=== PATIENT | male | born 1945 | race Caucasian/White ===

== ENCOUNTER → 2018-01-30 | Outpatient (CLI) | payer MEDICARE, BC ==
[~2018-01-30] MED LIST: AMPDEX15CR; ARIP20 PO; BUPR100ER PO; CARBATROL; CITA20 PO; CLON2; CLOP75; DOXE50 PO; ESCI20; HYDACE5 PO; LAMO100; LORA1 PO; OMEP20ER PO; ONDA4 PO; OXYACE5T PO; OXYCODONE; PRAM.5; PRAZ2; PRAZ2 PO; PRAZ5 PO; PROM25 PO; Protonix40 MG PO; RABE20; ROFE25; RXONDA4ODT MM; VENL25 PO; ZIPR60 PO; ZIPR80 PO; Zofran Odt4 MG SL; [UNRECOGNIZED DRUG - OTHER]
[2018-01-30 13:39] LABS: Adenovirus F 40/41 Not Detected (NOT DETECT); Astrovirus Not Detected (NOT DETECT); Campylobacter Sp Not Detected (NOT DETECT); Cryptosporidium Not Detected (NOT DETECT); Cyclospora Cayetanensis Not Detected (NOT DETECT); E. Coli O157 Not Detected (NOT DETECT); Entamoeba Histolytica Not Detected (NOT DETECT); Enteroaggregative E. coli-EAEC Not Detected (NOT DETECT); Enteropathogenic E. coli-EPEC Not Detected (NOT DETECT); Enterotoxigenic E. coli-ETEC Not Detected (NOT DETECT); Giardia Lamblia Not Detected (NOT DETECT); Norovirus GI/GII Not Detected (NOT DETECT); Plesiomonas Shigelloides Not Detected (NOT DETECT); Rotavirus A Not Detected (NOT DETECT); Salmonella Sp Not Detected (NOT DETECT); Sapovirus Not Detected (NOT DETECT); Shiga Toxin-prod E. coli-STEC Not Detected (NOT DETECT); Shigella/Enteroin E. coli-EIEC Not Detected (NOT DETECT); Vibrio Cholerae Not Detected (NOT DETECT); Vibrio Sp Not Detected (NOT DETECT); Yersinia Enterocolitica Not Detected (NOT DETECT)
== END | disposition home or self-care (01) ==
LOC: LAB EV 10:30
PROVIDERS: Physician Assistant
DX: R19.7 Diarrhea, unspecified (principal)
CPT/HCPCS: 87507

== ENCOUNTER 2018-05-17 15:39 | Emergency (ER) | payer MEDICARE, BC ==
[~2018-05-17] VITALS: Ht 182.9 cm; Wt 106.6 kg
[~2018-05-17 15:39] MED LIST changes: -CLOP75
== END 2018-05-17 17:20 | disposition home or self-care (01) ==
LOC: ER 15:39
DX: R13.10 Dysphagia, unspecified (principal); Z88.5 Allergy status to narcotic agent; Z79.899 Other long term (current) drug therapy; Z86.73 Personal history of transient ischemic attack (TIA), and cerebral infarction without residual deficits; Z87.891 Personal history of nicotine dependence
CPT/HCPCS: 99283

== ENCOUNTER 2018-11-12 06:08 | Observation (INO) | payer MEDICARE, BC ==
[~2018-11-12] VITALS: Ht 182.9 cm; Wt 107.5 kg
[~2018-11-12 06:08] MED LIST changes: +CLOP75
[2018-11-12] MEDS ORDERED: CLOP75 PO (06:35)
[2018-11-12 06:39] LABS: BASOPHILS ABSOLUTE AUTO 0.02 K/mm3 (0.00-0.23); BASOPHILS PERCENT AUTO 0 % (0-2); EOSINOPHILS ABSOLUTE AUTO 0.18 K/mm3 (0.00-0.68); EOSINOPHILS PERCENT AUTO 1 % (0-6); Hematocrit 43.2 % (37.0-53.0); Hemoglobin 14.6 g/dL (13.5-17.5); IMMATURE GRAN ABSOLUTE AUTO 0.04 K/mm3 (0.00-0.10); IMMATURE GRAN PERCENT AUTO 0 % (0-1); LYMPHOCYTES ABSOLUTE AUTO 1.92 K/mm3 (0.84-5.20); LYMPHOCYTES PERCENT AUTO 15 % (21-46); MONOCYTES ABSOLUTE AUTO 1.48 K/mm3 (0.16-1.47); MONOCYTES PERCENT AUTO 11 % (4-13); Mean Corpuscular HGB 30.3 pg (26.0-34.0); Mean Corpuscular HGB Conc 33.8 g/dL (31.5-36.5); Mean Corpuscular Volume 90 fL (80-100); Mean Platelet Volume 9.7 fL (9.1-12.4); NEUTROPHILS ABSOLUTE AUTO 9.37 K/mm3 (1.96-9.15); NEUTROPHILS PERCENT AUTO 72 % (41-73); Platelet Count 227 K/mm3 (150-400); RDW Coefficient Variation 12.3 % (11.7-14.2); RDW Standard Deviation 39.9 fL (35.1-46.3); Red Blood Cell Count 4.82 M/mm3 (4.30-5.90); White Blood Cell Count 13.01 K/mm3 (4.00-11.30)
[2018-11-12 06:56] LABS: Alanine Aminotransfer (ALT/SGP 23 U/L (12-78); Albumin, Blood 3.5 g/dL (3.4-5.0); Alk Phos 73 U/L (50-136); Anion Gap 11 mmol/L (6-16); Aspartate Aminotrans (AST/SGOT 25 U/L (12-37); Bilirubin, Total 0.6 mg/dL (0.1-1.0); Blood Urea Nitrogen 21 mg/dL (8-24); Bun/Creatinine Ratio 17.1 (12.0-20.0); CO2, Blood 25 mmol/L (21-32); Calcium, Blood 8.7 mg/dL (8.5-10.1); Chloride, Blood 99 mmol/L (98-108); Creatinine, Blood 1.23 mg/dL (0.60-1.20); Globulin, Blood 3.5 g/dL (2.2-4.0); Glomerular Filtration Rate >60 (60-); Glucose, Blood 127 mg/dL (70-99); Potassium, Blood 3.6 mmol/L (3.5-5.5); Sodium, Blood 135 mmol/L (136-145)
[2018-11-12 10:23] LABS: BASOPHILS ABSOLUTE AUTO 0.02 K/mm3 (0.00-0.23); BASOPHILS PERCENT AUTO 0 % (0-2); EOSINOPHILS ABSOLUTE AUTO 0.09 K/mm3 (0.00-0.68); EOSINOPHILS PERCENT AUTO 1 % (0-6); Hematocrit 40.9 % (37.0-53.0); Hemoglobin 13.7 g/dL (13.5-17.5); IMMATURE GRAN ABSOLUTE AUTO 0.05 K/mm3 (0.00-0.10); IMMATURE GRAN PERCENT AUTO 0 % (0-1); LYMPHOCYTES PERCENT AUTO 16 % (21-46); MONOCYTES ABSOLUTE AUTO 1.12 K/mm3 (0.16-1.47); MONOCYTES PERCENT AUTO 9 % (4-13); Mean Corpuscular HGB 30.7 pg (26.0-34.0); Mean Corpuscular HGB Conc 33.5 g/dL (31.5-36.5); Mean Corpuscular Volume 92 fL (80-100); Mean Platelet Volume 9.8 fL (9.1-12.4); NEUTROPHILS ABSOLUTE AUTO 8.92 K/mm3 (1.96-9.15); NEUTROPHILS PERCENT AUTO 74 % (41-73); Platelet Count 204 K/mm3 (150-400); RDW Coefficient Variation 12.4 % (11.7-14.2); RDW Standard Deviation 41.6 fL (35.1-46.3); Red Blood Cell Count 4.46 M/mm3 (4.30-5.90)
[2018-11-12] MEDS ORDERED: TRAZADONE PO (12:52)
[2018-11-13 04:36] LABS: BASOPHILS ABSOLUTE AUTO 0.01 K/mm3 (0.00-0.23); BASOPHILS PERCENT AUTO 0 % (0-2); EOSINOPHILS ABSOLUTE AUTO 0.24 K/mm3 (0.00-0.68); EOSINOPHILS PERCENT AUTO 2 % (0-6); Hematocrit 38.6 % (37.0-53.0); Hemoglobin 13.1 g/dL (13.5-17.5); IMMATURE GRAN ABSOLUTE AUTO 0.05 K/mm3 (0.00-0.10); IMMATURE GRAN PERCENT AUTO 0 % (0-1); LYMPHOCYTES ABSOLUTE AUTO 2.64 K/mm3 (0.84-5.20); LYMPHOCYTES PERCENT AUTO 21 % (21-46); MONOCYTES ABSOLUTE AUTO 1.53 K/mm3 (0.16-1.47); MONOCYTES PERCENT AUTO 12 % (4-13); Mean Corpuscular HGB 30.8 pg (26.0-34.0); Mean Corpuscular HGB Conc 33.9 g/dL (31.5-36.5); Mean Corpuscular Volume 91 fL (80-100); Mean Platelet Volume 10.1 fL (9.1-12.4); NEUTROPHILS ABSOLUTE AUTO 8.27 K/mm3 (1.96-9.15); NEUTROPHILS PERCENT AUTO 65 % (41-73); Platelet Count 195 K/mm3 (150-400); RDW Coefficient Variation 12.7 % (11.7-14.2); RDW Standard Deviation 41.3 fL (35.1-46.3); Red Blood Cell Count 4.25 M/mm3 (4.30-5.90); White Blood Cell Count 12.74 K/mm3 (4.00-11.30)
[2018-11-13 06:02] LABS: Alanine Aminotransfer (ALT/SGP 19 U/L (12-78); Albumin, Blood 3.1 g/dL (3.4-5.0); Alk Phos 60 U/L (50-136); Anion Gap 7 mmol/L (6-16); Aspartate Aminotrans (AST/SGOT 20 U/L (12-37); Bilirubin, Total 0.9 mg/dL (0.1-1.0); Blood Urea Nitrogen 15 mg/dL (8-24); Bun/Creatinine Ratio 13.3 (12.0-20.0); CO2, Blood 27 mmol/L (21-32); Calcium, Blood 8.2 mg/dL (8.5-10.1); Chloride, Blood 103 mmol/L (98-108); Creatinine, Blood 1.13 mg/dL (0.60-1.20); Globulin, Blood 3.2 g/dL (2.2-4.0); Glomerular Filtration Rate >60 (60-); Glucose, Blood 98 mg/dL (70-99); Potassium, Blood 3.7 mmol/L (3.5-5.5); Sodium, Blood 137 mmol/L (136-145); Total Protein, Blood 6.3 g/dL (6.4-8.2)
[2018-11-13] MEDS ORDERED: DULO60 PO (12:56)
== END 2018-11-13 14:05 | disposition home or self-care (01) ==
LOC: ER 06:08 → SURS 06:09
PROVIDERS: Internal Medicine; Internal Medicine Endocrinology, Diabetes & Metabolism
DX: E86.9 Volume depletion, unspecified (principal); I95.1 Orthostatic hypotension; E86.0 Dehydration; K92.0 Hematemesis; K52.9 Noninfective gastroenteritis and colitis, unspecified; G47.33 Obstructive sleep apnea (adult) (pediatric); J44.9 Chronic obstructive pulmonary disease, unspecified; M19.90 Unspecified osteoarthritis, unspecified site; N40.0 Benign prostatic hyperplasia without lower urinary tract symptoms; K21.9 Gastro-esophageal reflux disease without esophagitis; K22.2 Esophageal obstruction; F43.10 Post-traumatic stress disorder, unspecified; F41.8 Other specified anxiety disorders; M54.5 Low back pain; G89.29 Other chronic pain; Z86.73 Personal history of transient ischemic attack (TIA), and cerebral infarction without residual deficits; Z87.891 Personal history of nicotine dependence; Z88.5 Allergy status to narcotic agent; Z79.02 Long term (current) use of antithrombotics/antiplatelets; Z79.899 Other long term (current) drug therapy
CPT/HCPCS: 36415; 80053; 82272; 85018; 85025; 93005; 93010; 96361; 96374; 96375; 96376; 99285-25; C9113; G0378; J2405; J3480; J7120

== ENCOUNTER 2019-01-19 06:36 | Day surgery (SDC) | payer MEDICARE, BC ==
[~2019-01-19] VITALS: Ht 182.9 cm; Wt 108.0 kg
[~2019-01-19 06:36] MED LIST changes: +CLOP75 PO; +DULO60 PO; +TRAZADONE PO
[2019-01-19] MEDS ORDERED: TRAZ50 (07:31)
== END 2019-01-19 08:40 | disposition home or self-care (01) ==
LOC: ORSCSDS 06:36
PROVIDERS: Internal Medicine Gastroenterology
PROC: 0DB68ZX Excision of Stomach, Via Natural or Artificial Opening Endoscopic, Diagnostic (ICD-10-PCS; principal; 2019-01-19 08:00)
DX: K92.0 Hematemesis (principal); K44.9 Diaphragmatic hernia without obstruction or gangrene; Z86.73 Personal history of transient ischemic attack (TIA), and cerebral infarction without residual deficits; Z87.891 Personal history of nicotine dependence; E66.9 Obesity, unspecified; Z68.34 Body mass index [BMI] 34.0-34.9, adult; Z79.899 Other long term (current) drug therapy
CPT/HCPCS: 88305; 88342; J0330; J1980; J2405; J7120

== ENCOUNTER 2019-08-24 07:58 | Day surgery (SDC) | payer MEDICARE, BC ==
[~2019-08-24] VITALS: Ht 182.9 cm; Wt 106.4 kg
[~2019-08-24 07:58] MED LIST changes: +TRAZ50 PO
[2019-08-24] MEDS ORDERED: CLOP75 (08:48)
[2019-08-24] MEDS ORDERED: PRAV20 (08:49)
--- NOTE | 2019-08-24 10:19 | NUR ---
08/24/19 1019 Glory Mcarthur WHEN ASKED PT. IF HE HAD ANY PAIN, PT. VERBALIZES HIS LOWER BACK. PT. STATED "TIRED FROM LAYING IN THE BED." [facility] OFFERED PT. TO SIT UP IN BED OR A PILLOW OR FOOT OF BED RAISED. PT. REFUSED. PT. VERBALIZED HE WAS OK. PT. WITH CALL LIGHT WITHIN REACH. ALSO APPOLOGIZED TO PT. FOR DR. GREEN RUNNING BEHIND.
== END 2019-08-24 11:53 | disposition home or self-care (01) ==
LOC: ORSCSDS 07:58
PROVIDERS: Internal Medicine Gastroenterology
PROC: 0DBN8ZX Excision of Sigmoid Colon, Via Natural or Artificial Opening Endoscopic, Diagnostic (ICD-10-PCS; principal; 2019-08-24 09:45)
PROC: 0DBL8ZX Excision of Transverse Colon, Via Natural or Artificial Opening Endoscopic, Diagnostic (ICD-10-PCS; principal; 2019-08-24 09:45)
PROC: 0DBH8ZX Excision of Cecum, Via Natural or Artificial Opening Endoscopic, Diagnostic (ICD-10-PCS; principal; 2019-08-24 09:45)
DX: Z12.11 Encounter for screening for malignant neoplasm of colon (principal); D12.0 Benign neoplasm of cecum; D12.3 Benign neoplasm of transverse colon; D12.5 Benign neoplasm of sigmoid colon; K57.30 Diverticulosis of large intestine without perforation or abscess without bleeding; K64.8 Other hemorrhoids; Z86.010 Personal history of colon polyps; G47.33 Obstructive sleep apnea (adult) (pediatric); Z86.73 Personal history of transient ischemic attack (TIA), and cerebral infarction without residual deficits; Z79.899 Other long term (current) drug therapy; Z87.891 Personal history of nicotine dependence
CPT/HCPCS: 88305; J2704; J7120

== ENCOUNTER 2024-09-09 20:09 | Inpatient (IN) | payer MEDICARE, BC ==
[~2024-09-09] VITALS: Ht 182.9 cm; Wt 87.6 kg
[~2024-09-09 20:09] MED LIST changes: +LOPERAMIDE2 M2; +PRAV20
[2024-09-09] MEDS ORDERED: LORazepam 2 MG/ML 1ML Injection ONE (20:12)
[2024-09-09] MEDS ORDERED: LORazepam 2 MG/ML 1ML Injection IV ONE (20:15)
[2024-09-09 20:34] LABS: Calcium, Ionized (POC) 1.23 mmol/L (1.10-1.46); Chloride (POC) 100 mmol/L (98-108); Glucose (ISTAT POC) 153 mg/dL (70-99); Hemoglobin (POC) 15.3 g/dL (13.5-17.5); Potassium (POC) 3.3 mmol/L (3.5-5.5); Sodium (POC) 136 mmol/L (135-148); Total CO2 (POC) 19 mmol/L (21-32)
[2024-09-09] MEDS ORDERED: levETIRAcetam 1,500 MG in NS 100 ML IV ONE ×2 (20:40→21:30)
[2024-09-09] MEDS ORDERED: NS 1,000 ML IV SCH (20:55)
[2024-09-09 20:57] LABS: Albumin, Blood 3.7 g/dL (3.4-5.0); Bilirubin, Total 0.4 mg/dL (0.1-1.0); Bun/Creatinine Ratio 12.8 (12.0-20.0); Calcium, Blood 8.5 mg/dL (8.5-10.1); Creatinine, Blood 0.94 mg/dL (0.60-1.20); Globulin, Blood 3.6 g/dL (2.2-4.0); Potassium, Blood 3.6 mmol/L (3.5-5.5); Prolactin 6.5 ng/mL (2.5-17.4); Total Protein, Blood 7.3 g/dL (6.4-8.2)
[2024-09-09 21:00] LABS: Hematocrit 41.1 % (37.0-53.0); Hemoglobin 13.5 g/dL (13.5-17.5); Mean Corpuscular HGB 29.9 pg (26.0-34.0); Mean Corpuscular HGB Conc 32.8 g/dL (31.5-36.5); Mean Corpuscular Volume 91 fL (80-100); Mean Platelet Volume 10.3 fL (9.1-12.4); Platelet Count 255 K/mm3 (150-400); RDW Coefficient Variation 12.9 % (11.7-14.2); Red Blood Cell Count 4.52 M/mm3 (4.30-5.90); White Blood Cell Count 19.93 K/mm3 (4.00-11.30)
[2024-09-09 21:25] LABS: BASOPHILS PERCENT MAN 0 % (0-2); EOSINOPHILS PERCENT MAN 0 % (0-6); LYMPHOCYTES % ATYPICAL MANUAL 2 % (0-0); LYMPHOCYTES ABSOLUTE MAN 7.57 K/mm3 (0.84-5.20); LYMPHOCYTES PERCENT MAN 36 % (21-46); MONOCYTES ABSOLUTE MAN 0.79 K/mm3 (0.16-1.47); MONOCYTES PERCENT MAN 4 % (4-13); NEUTROPHILS ABSOLUTE MAN 11.55 K/mm3 (1.96-9.15); SEG NEUTROPHILS PERCENT MAN 58 % (41-73); TOTAL CELLS COUNTED 100
[2024-09-09] MEDS ORDERED: Metoprolol Tartrate 1 MG/ML 5 ML VIAL IV PRN (21:35)
[2024-09-09] MEDS ORDERED: FLU VACC TS2024-25(6MOS UP)/PF 45 MCG/0.5 ML SYRINGE IM ONE (22:00)
[2024-09-09] MEDS ORDERED: LORazepam 2 MG/ML 1ML Injection IV PRN (22:05)
[2024-09-09] MEDS ORDERED: Ondansetron HCl 2 MG / ML 2ML Vial IV PRN (22:05)
[2024-09-09] MEDS ORDERED: Lactated Ringer's 1,000 ML IV SCH (23:00)
[2024-09-09 23:30] VITALS: BP 147/81
[2024-09-09 23:45] VITALS: BP 133/88
[2024-09-09] MEDS ORDERED: Heparin Sodium,Porcine/0.5 NS 500 ML IV SCH (23:45)
[2024-09-10] VITALS (34 sets, daily range): BP systolic 52–156; BP diastolic 26–93
--- NOTE | 2024-09-10 00:41 | NUR ---
ARRIVAL TO ICU PT LETHARGIC AND DOES NOT OPEN EYES OR FOLLOW COMMANDS. MOANS WITH CARE. EXTREMITIES STIFF WHEN TRYING TO REPOSITION THEM. ON 5L VIA NC WITH SPO2 GREATER THEN 92%. VSS. ST 100-110'S. LR AT 125ML/HR AND HEPARIN STARTED PER EMAR. PT PLACED IN BRIEF D/T AMS. SON AT BEDSIDE AND AGREES TO BRING IN PT MED LIST IN THE AM. CALL TO [facility]. SON AT BEDSIDE AND STATES HE IS MAIN CONTACT. SEIZURE PADS IN PLACE. CALL LIGHT IN REACH.
[2024-09-10 00:46] LABS: Anti-Xa UFH, PHA Monitoring <0.10 IU/mL; International Normalized Ratio 1.07; Prothrombin Time Results 11.4 Sec (9.7-11.5)
[2024-09-10] MEDS ORDERED: Aspir 8181 MG PO (03:06)
[2024-09-10] MEDS ORDERED: THERA-D2000 UNIT PO (03:06)
[2024-09-10] MEDS ORDERED: ABILIFY MYCITE10 M2 PO (03:07)
[2024-09-10] MEDS ORDERED: ZOCOR20 MG PO (03:07)
[2024-09-10 03:38] LABS: BASOPHILS ABSOLUTE AUTO 0.04 K/mm3 (0.00-0.23); BASOPHILS PERCENT AUTO 0 % (0-2); EOSINOPHILS ABSOLUTE AUTO 0.01 K/mm3 (0.00-0.68); EOSINOPHILS PERCENT AUTO 0 % (0-6); Hematocrit 36.4 % (37.0-53.0); Hemoglobin 12.3 g/dL (13.5-17.5); IMMATURE GRAN ABSOLUTE AUTO 0.23 K/mm3 (0.00-0.10); IMMATURE GRAN PERCENT AUTO 1 % (0-1); LYMPHOCYTES ABSOLUTE AUTO 1.58 K/mm3 (0.84-5.20); LYMPHOCYTES PERCENT AUTO 7 % (21-46); MONOCYTES ABSOLUTE AUTO 1.21 K/mm3 (0.16-1.47); MONOCYTES PERCENT AUTO 6 % (4-13); Mean Corpuscular HGB 30.1 pg (26.0-34.0); Mean Corpuscular HGB Conc 33.8 g/dL (31.5-36.5); Mean Corpuscular Volume 89 fL (80-100); Mean Platelet Volume 9.6 fL (9.1-12.4); NEUTROPHILS ABSOLUTE AUTO 18.52 K/mm3 (1.96-9.15); NEUTROPHILS PERCENT AUTO 86 % (41-73); Platelet Count 226 K/mm3 (150-400); RDW Coefficient Variation 12.9 % (11.7-14.2); RDW Standard Deviation 42.4 fL (35.1-46.3); Red Blood Cell Count 4.09 M/mm3 (4.30-5.90); White Blood Cell Count 21.59 K/mm3 (4.00-11.30)
[2024-09-10 04:02] LABS: Albumin, Blood 3.2 g/dL (3.4-5.0); Bilirubin, Total 0.3 mg/dL (0.1-1.0); Bun/Creatinine Ratio 10.9 (12.0-20.0); Calcium, Blood 8.2 mg/dL (8.5-10.1); Creatinine, Blood 0.92 mg/dL (0.60-1.20); Globulin, Blood 3.1 g/dL (2.2-4.0); Magnesium, Blood 1.4 mg/dL (1.6-2.4); Total Protein, Blood 6.3 g/dL (6.4-8.2)
[2024-09-10 04:48] LABS: Source, Urine Foley catheter
[2024-09-10 05:09] LABS: Appearance, Urine Clear (Clear); Bilirubin, Urine Neg (Neg); Blood, Urine 3+ (Neg); Color, Urine Yellow (P-Yellow); Glucose Qualitative, Urine Neg (Neg); Ketones, Urine Neg (Neg); Leukocyte Esterase, Urine Neg (Neg); Nitrite, Urine Neg (Neg); Protein, Urine 3+ (Neg); Specific Gravity, Urine 1.015 (1.003-1.022); Urobilinogen, Urine NORM (Normal)
--- NOTE | 2024-09-10 05:16 | NUR ---
SHIFT SUMMARY NO ACUTE EVENTS T/O NIGHT. [facility]CEIV[facility] LIST FROM [facility] AND UPDATED IN CHART. VSS. ON 5L VIA NC WITH SPO2 GREATER THEN 92%. SR/ST RATE 90-100'S. PT REMAINS LETHARGIC, DID HAVE ONE EPISODE OF SLIGHTLY OPENING EYES, TEARING OFF GOWN/CORDS BEFORE FALLING ASLEEP AND THEN WAKING UP AGAIN. DID NOT ANSWER QUESTIONS OR FOLLOW DIRECTIONS. BLADDER SCAN >999. 1200ML OUT FROM CATH. CALL TO HOSP AND ORDER TO LEAVE IN REYEZ. HEPARIN GTT INFUSING. SEE FLOWSHEET FOR RATE AND TITRATIONS. LR AT 125ML/HR. WILL REPORT OFF TO ONCOMING RN.
[2024-09-10 05:42] LABS: Bacteria Few /hpf; Red Blood Cells, Urine 0-2 /hpf (0-2); Squamous Epithelial Cells Few /hpf (Few); White Blood Cells, Urine 0-2 /hpf (0-5)
--- NOTE | 2024-09-10 06:19 | NUR ---
UPDATE PT TRYING TO GET OOB, THROWING LEGS OVER SIDERAIL AND PULLING OFF GOWN/CORDS. ABLE TO STATE "I HAVE TO GO TO THE BATHROOM". UNABLE TO REDIRECT OR EDUCATE PT ON REYEZ CATH. ORDER FOR MARYCHUY APONTE D/T PT SAFETY.
[2024-09-10] MEDS ORDERED: Lactated Ringer's 1,000 ML IV SCH (07:05)
[2024-09-10] MEDS ORDERED: Lactobacil 2-S.Thermo-Bifido 1 1 Cap PO SCH (09:00)
[2024-09-10] MEDS ORDERED: Atorvastatin 40 MG Tab PO SCH (09:00)
[2024-09-10] MEDS ORDERED: levETIRAcetam 1,000 MG in NS 100 ML IV SCH (09:00)
[2024-09-10] MEDS ORDERED: Enoxaparin 40 MG/0.4 ML SYR SC SCH (09:00)
[2024-09-10] MEDS ORDERED: Aspirin 81 MG Chew PO SCH (09:00)
[2024-09-10] MEDS ORDERED: Doxycycline Hyclate 100 MG in Dextrose 5% 250 ML IV SCH (12:00)
[2024-09-10] MEDS ORDERED: CefTRIAXone Sodium 1,000 MG in NS 100 ML IV SCH (12:00)
[2024-09-10] MEDS ORDERED: Mag Sulfate 1 GM/D5% 100ML 100 ML IV STA (13:37)
--- NOTE | 2024-09-10 14:11 | NUR ---
Pt. is resting but responds when I enter his room. Pt. is pleasant, but somewhat somnolent. Attempted a life review. Pt. agreed to have me pray for him. Prayed with Pt. Pt. became totally somnolent during prayer.
--- NOTE | 2024-09-10 17:20 | NUR ---
SHIFT SUMMARY PT ADMITED TO ICU FOR SEIZURES. MRI HEAD DONE. STROKE RULED OUT. STATUS CHANGE TO MEDICAL. ALTERED MENTATION, BUT IMPROVED THROUGHOUT THE DAY.
[2024-09-11] VITALS (11 sets, daily range): BP systolic 125–164; BP diastolic 74–102
[2024-09-11 03:18] LABS: BASOPHILS ABSOLUTE AUTO 0.02 K/mm3 (0.00-0.23); BASOPHILS PERCENT AUTO 0 % (0-2); EOSINOPHILS ABSOLUTE AUTO 0.03 K/mm3 (0.00-0.68); EOSINOPHILS PERCENT AUTO 0 % (0-6); Hematocrit 33.8 % (37.0-53.0); Hemoglobin 11.5 g/dL (13.5-17.5); IMMATURE GRAN ABSOLUTE AUTO 0.11 K/mm3 (0.00-0.10); IMMATURE GRAN PERCENT AUTO 1 % (0-1); LYMPHOCYTES ABSOLUTE AUTO 2.54 K/mm3 (0.84-5.20); LYMPHOCYTES PERCENT AUTO 17 % (21-46); MONOCYTES ABSOLUTE AUTO 1.47 K/mm3 (0.16-1.47); MONOCYTES PERCENT AUTO 10 % (4-13); Mean Corpuscular HGB 29.9 pg (26.0-34.0); Mean Corpuscular Volume 88 fL (80-100); Mean Platelet Volume 9.9 fL (9.1-12.4); NEUTROPHILS ABSOLUTE AUTO 10.68 K/mm3 (1.96-9.15); NEUTROPHILS PERCENT AUTO 72 % (41-73); Platelet Count 183 K/mm3 (150-400); RDW Standard Deviation 41.7 fL (35.1-46.3); Red Blood Cell Count 3.84 M/mm3 (4.30-5.90); White Blood Cell Count 14.85 K/mm3 (4.00-11.30)
[2024-09-11 03:35] LABS: Albumin, Blood 3.1 g/dL (3.4-5.0); Albumin/Globulin Ratio 1.1 (0.8-1.8); Bilirubin, Total 0.5 mg/dL (0.1-1.0); Bun/Creatinine Ratio 11.6 (12.0-20.0); Calcium, Blood 8.7 mg/dL (8.5-10.1); Creatinine, Blood 0.86 mg/dL (0.60-1.20); Globulin, Blood 2.9 g/dL (2.2-4.0); Potassium, Blood 3.4 mmol/L (3.5-5.5)
--- NOTE | 2024-09-11 06:11 | NUR ---
SHIFT CHERELLE PT A/O X 2. ABLE TO STATE LOCATION AND MONTH. FOLLOWS SIMPLE DIRECTIONS BUT FORGETFUL AND CONTINUES TO PULL AT LINES CORDS. VEST AND MITT RESTRAINTS IN PLACE. APPROX 0100 PT DID PULL ON CATHETER WITH MITTS ON. BLOOD NOTED TO TIP OF PENIS AND URINE COLOR RED. HOSP NOTIFIED AND MORNING LABS ORDERED. APPROX 0530 THIS RN NOTED THAT URINE WAS A DARKER RED COLOR WITH CLOTS IN TUBE. CALL TO HOSP AND ORDER TO STOP HEPARIN, REPEAT H/H IN 4 HOURS AND FLUSH REYEZ PRN. NO CLOTS NOTED WITH FLUSHING, REMAINS DARK RED AFTER FLUSHING. VSS, SR HR 70-90'S. ON 1.5L VIA NC WITH SPO2 GREATER THEN 92%. WILL REPORT OFF TO ONCOMING RN.
[2024-09-11] MEDS ORDERED: Potassium Chl 20MEQ/Water100ML 100 ML IV SCH (08:10)
[2024-09-11] MEDS ORDERED: Lidocaine 2% Jelly Uro-Jet UR ONE (08:50)
--- NOTE | 2024-09-11 09:45 | NUR ---
SHIFT ASSESSMENT ASSUMED CARE OF PT @ 0700, DURING BEDSIDE REPORT FROM NOC NURSE WE NOTICED PTS REYEZ CATHETER WAS REMOVED, CATHETER COLLECTION CHAMBER WITH BLOODY URINE. BLOOD SLOWLY OOZING FROM PENIS. PT IN BL MITTS AND MARYCHUY AT THAT TIME. PT ALERT TO PERSON, PLACE, AND EVENT, FOLLOWING COMMANDS, VERBALIZING NEEDS. PT ASKED FOR A URINAL, ABLE TO URINATE A SMALL AMNT OF BLOOD c CLOTS. THIS RN CONTACTED HOSPITALIST, REYEZ CATHETER REESTABLISHED FOR IRRIGATION, CONTINUES TO DRAIN BLOODY URINE. PT HAVING LOOSE BROWN STOOLS. PASSED SWALLOW EVAL, WILL ADVANCE DIET ORDERED. MITTS AND MARYCHUY REMOVED. PT RESTING COMFORTABLY.
[2024-09-11 12:03] LABS: Hematocrit 34.2 % (37.0-53.0); Hemoglobin 11.6 g/dL (13.5-17.5)
[2024-09-11] MEDS ORDERED: Acetaminophen 325 MG TABLET PO PRN (16:15)
--- NOTE | 2024-09-11 18:16 | NUR ---
SHIFT SUMMARY PT REMAINS ALERT TO PERSON AND FAMILY, A LITTLE MORE CONFUSED THIS AFTERNOON REGARDING LOCATION. CONTINUES TO FOLLOW COMMANDS, REDIRECTABLE BUT ACCIDENTALLY PULLS ON LINES AND CORDS. ONCE AGAIN HAD A HOLD OF HIS REYEZ CATHETER, DID NOT DISLODGE HE WAW REDIRECTED, SITTER AT BEDSIDE NOW. REYEZ CATHETER DRAINING RED URINE, T-MAX OF 100.5, MEDICATED WITH PRN ACETAMINOPHEN. TWO LARGE LOOSE BM'S TODAY. TOLERATING SMALL AMNTS OF FOOD. \ PTS SON UPDATED AT BEDSIDE THIS EVENING.
--- NOTE | 2024-09-11 20:11 | NUR ---
ASSUMED CARE PT A/O X 3. FORGETFUL AT TIMES. 1:1 SITTER AT BEDSIDE D/T PT ATTEMPTING TO PULL LINES/TUBES. EASILY REDIRECTABLE. VSS, HTN NOTED. ON RA WITH SPO2 GREATER THEN 92%. REYEZ PATENT AND DRAINING TO GRAVITY. URINE PINK WITH SMALL CLOTS NOTED. CALL LIGHT IN REACH.
[2024-09-11] MEDS ORDERED: Metoprolol Tartrate 25 MG Tab PO SCH (21:00)
[2024-09-12] VITALS (10 sets, daily range): BP systolic 129–170; BP diastolic 64–90
--- NOTE | 2024-09-12 05:42 | NUR ---
SHIFT SUMMARY NO ACUTE EVENTS T/O NIGHT. PT A/O X 3. FORGETFUL AT TIMES. SITTER AT BEDSIDE D/T PT FALL RISK AND RISK OF PULLING ON LINES. VSS, HTN AT TIMES. SR 60-90'S. LR AT 125ML/HR. REYEZ PATENT AND DRAINING TO GRAVITY. CATH FLUSHED ONCE D/T INCREASING RED COLOR. COLOR NOW PINK/YELLOW. PT C/O BACK PAIN THIS AM, MEDICATED PER EMAR AND AGREEABLE TO GETTING UP TO CHAIR. PT TWO PERSON ASSIST BUT DID REALLY WELL. STATES "MY BACK IS FEELING ALOT BETTER". WILL REPORT OFF TO ONCOMING RN.
[2024-09-12] MEDS ORDERED: Mag Sulfate 1 GM/D5% 100ML 100 ML IV STA (07:36)
[2024-09-12] MEDS ORDERED: ARIPiprazole 10 MG Tab PO SCH (09:00)
[2024-09-12] MEDS ORDERED: Metoprolol Tartrate 25 MG Tab PO SCH (09:00)
[2024-09-12] MEDS ORDERED: DULoxetine HCL 60 MG Capsule DR PO SCH (09:00)
[2024-09-12] MEDS ORDERED: Omeprazole 20 MG CapCR PO SCH (09:00)
[2024-09-12] MEDS ORDERED: Losartan Potassium 25 MG Tab PO SCH (09:00)
[2024-09-12] MEDS ORDERED: Cholecalciferol 1000 Unit Tablet (=25MCG) PO SCH (09:00)
[2024-09-12] MEDS ORDERED: LevETIRAcetam 500 MG Tab PO SCH (09:00)
--- NOTE | 2024-09-12 17:43 | NUR ---
SHIFT SUMMARY PT A&OX3, FOLLOWING COMMANDS, TRINITY. PT MORE COHERENT THAN YESTERDAY, DOING MUCH BETTER FEEDING SELF. TOLERATING PO INTAKE, APPETITE IMPROVING. WORKED WITH PHYSICAL THERAPY TODAY, AMBULATES TO RECLINER WITH WALKER AND GAIT BELT. A-FIB ON THE VITREO RETINAL SURGEON IN THE 80'S, BP MILDLY HYPERTENSIVE, SBP 150'S. ONE SMALL LOOSE BM TODAY. TEMP PROBE REYEZ DRAINING PINKISH URINE, HAVE NOT NEEDED TO FLUSH CATHETER TODAY. AAMIR (SON) AT BEDSIDE MOST OF THE DAY. THIS RN AND AAMIR DISCUSSED PLAN OF CARE. PT PROVIDES CARE TO SPOUSE. UNSURE OF PTS ABILITY TO PROVIDE APPROPRIATE CARE FOR SELF AND SPOUSE, WILL NEED TO MEET WITH CASE MANAGEMENT TOMORROW.
[2024-09-12] MEDS ORDERED: Prazosin HCL 5 MG Cap PO SCH (21:00)
[2024-09-12] MEDS ORDERED: TraZODone HCl 50 MG Tab PO SCH (21:00)
[2024-09-13 04:00] VITALS: BP 137/81
[2024-09-13 04:29] LABS: Bun/Creatinine Ratio 14.5 (12.0-20.0); Calcium, Blood 8.9 mg/dL (8.5-10.1); Creatinine, Blood 0.83 mg/dL (0.60-1.20); Magnesium, Blood 1.6 mg/dL (1.6-2.4); Potassium, Blood 2.8 mmol/L (3.5-5.5)
[2024-09-13] MEDS ORDERED: Potassium Chloride 20 MEQ TabCR PO ONE ×2 (04:40→13:30)
--- NOTE | 2024-09-13 05:01 | NUR ---
SHIFT SUMMARY NO ACUTE EVENTS T/O NIGHT. PT A/O X 3. FOLLOWS COMMANDS AND MOVES ALL EXTREMITIES. VSS, ON RA WITH SPO2 GREATER THEN 92%. SR W OCCASIONAL BIGEMINY PVC'S. HOSP NOTIFIED OF KCL OF 2.8. ORDERS RECEIVED. REYEZ PATENT AND DRAINING TO GRAVITY. URINE PINK IN COLOR. WILL REPORT OFF TO ONCOMING RN.
[2024-09-13] MEDS ORDERED: Mag Sulfate 1 GM/D5% 100ML 100 ML IV STA (07:32)
[2024-09-13] MEDS ORDERED: Amoxicillin/Clavulanate K 875 MG Tab PO SCH (09:00)
--- NOTE | 2024-09-13 10:53 | NUR ---
UPDATE PT A&OX4, FOLLOWING COMMANDS, USING CALL LIGHT APPROPRIATELY. AMBULATING WITH GAIT BELT AND WALKER. TOLERATING PO INTAKE WELL. CONTINUES TO HAVE LOOSE BM'S. AFTER ASSISTING TO BEDSIDE COMMODE THIS MORNING, PT WENT TO STAND WITHOUT CALLING FOR ASSISTANCE AND ACCIDENTALLY PULLED ON HIS REYEZ CATHETER, NOW BLEEDING OUT OF PENIS AGAIN, REYEZ WITH RED TINGED URINE. PADS PLACED, WILL MEDICATE FOR MILD DISCOMFORT WITH PRN TYLENOL.
[2024-09-13] MEDS ORDERED: Nystatin 100,000 Unit/ML Susp 5 ML UDC SS SCH (13:00)
[2024-09-13] MEDS ORDERED: Omeprazole 20 MG CapCR PO SCH (16:30)
--- NOTE | 2024-09-13 18:17 | NUR ---
SHIFT SUMMARY PT REMAINS A&OX4, FOLLOWING COMMANDS, AMBULATING WITH WALKER. MUCH MORE COHERENT TODAY, BACK TO BASELINE PER SON AAMIR AT BEDSIDE. TOLERATING MEALS WELL. CONTINUES TO HAVE LOOSE STOOLS BUT CONTINENT. REYEZ CATHETER DRAINING PINK URINE. NO OTHER ACUTE CHANGES. EEG COMPLETED THIS AFTERNOON.
[2024-09-13 19:58] VITALS: BP 149/95
[2024-09-13 19:59] VITALS: BP 149/95
--- NOTE | 2024-09-13 20:40 | NUR ---
ASSUMPTION OF CARE ASSUMED CARE OF PATIENT AT 1900, BEDSIDE SHIFT REPORT RECEIVED FROM DOUG RN. PT RESTING IN BED, ALERT AND ORIENTED X4. PT ANSWERS QUESTIONS APPROPRIATELY, FOLLOWS DIRECTION WHEN PROMPTED AND IS ABLE TO MAKE HIS NEEDS KNOWN. PT APPEARS TO BE FORGETFUL AT TIMES. PT AMBULATES TO BEDSIDE COMMODE TO VOID. HR 70-80'S SINUS, MAP >65. PT ON RA, OXYGEN SATURATION >95% ON SPOT CHECK. ABDOMEN SOFT, BOWEL TONES ACTIVE THROGUHOUT, PT HAD ONE INCONTINENT BOWEL MOVEMENT IN BED, UP TO BEDSIDE COMMODE TO FINISH BM. REYEZ IN PLACE PATENT DRAINING REDISH/PINK URINE WITH SMALL CLOTS. POWERGLIDE IN PLACE TO APRIL SL. BED IN LOWEST POSITION, CALL LIGHT WITHIN REACH, CARE CONTINUES.
[2024-09-14 03:36] VITALS: BP 156/105
[2024-09-14 03:40] VITALS: BP 156/105
[2024-09-14 03:59] LABS: Calcium, Blood 9.2 mg/dL (8.5-10.1); Magnesium, Blood 1.8 mg/dL (1.6-2.4); Potassium, Blood 3.9 mmol/L (3.5-5.5)
--- NOTE | 2024-09-14 05:12 | NUR ---
SHIFT SUMMARY NO ACUTE CHANGES THIS SHIFT. PT RESTING IN BED, SLEEPING BUT AROUSABLE, PT ORIENTED X4. PT ANSWERS QUESTIONS APPROPRIATELY, FOLLOWS DIRECTION WHEN PROMPTED AND IS ABLE TO MAKE HIS NEEDS KNOWN. PT MOVES EXTREMITIES EQUALLY BILATERALLY. PT AMBULATES TO BEDSIDE COMMODE WITH NURSE ASSIST. HR 70'S SINUS, MAP >65. PT ON RA, OXYGEN SATURATION >95%. ABDOMEN SOFT, BOWEL TONES ACTIVE THROUGHOUT. PT HAS HAD MULTIPLE DOSES OF DIARRHEA THIS SHIFT. REYEZ IN PLACE DRAINING TO GRAVITY, URINE AUTHOR AGENT IN COLOR, YELLOW WITH PINK TINGE, SOME SMALL CLOTS NOTED. POWERGLIDE IN PLACE TO [facility]. BED IN LOWEST POSTION, CALL LIGHT WITHIN REACH, CARE CONTINUES.
[2024-09-14 08:17] VITALS: BP 155/102
[2024-09-14] MEDS ORDERED: AMOCLA875 PO (11:23)
[2024-09-14] MEDS ORDERED: LEVE500 PO (11:24)
[2024-09-14] MEDS ORDERED: METO25 PO (11:25)
[2024-09-14] MEDS ORDERED: LOSA25 PO (11:25)
[2024-09-14] MEDS ORDERED: ELIQUIS5 M2 PO (11:28)
[2024-09-14] MEDS ORDERED: VISBIOME 112.51 EACH PO (11:28)
--- NOTE | 2024-09-14 15:15 | NUR ---
Pt discharged home with services. Instructions and education provided to patient and [id number]. All questions answered. Meds faxed to pt preffered pharmacy. Pt instructed to not drive until being cleared by Neurology, given the information for Dr. Valenzuela in [facility]. IV removed and pt sent home with all belongings.
== END 2024-09-14 14:22 | disposition home health service (06) | DRG 100 ==
LOC: ER 20:09 → ERHOLD 21:58 → ICUE 21:58
PROVIDERS: Internal Medicine; Student in an Organized Health Care Education/Training Program; ADMIT Student in an Organized Health Care Education/Training Program
DX: R56.9 Unspecified convulsions (principal); A41.9 Sepsis, unspecified organism; J96.01 Acute respiratory failure with hypoxia; G92.8 Other toxic encephalopathy; J69.0 Pneumonitis due to inhalation of food and vomit; J18.9 Pneumonia, unspecified organism; E87.1 Hypo-osmolality and hyponatremia; I48.92 Unspecified atrial flutter; J44.9 Chronic obstructive pulmonary disease, unspecified; M19.90 Unspecified osteoarthritis, unspecified site; N40.0 Benign prostatic hyperplasia without lower urinary tract symptoms; K21.9 Gastro-esophageal reflux disease without esophagitis; F43.10 Post-traumatic stress disorder, unspecified; F41.8 Other specified anxiety disorders; E87.6 Hypokalemia; G25.81 Restless legs syndrome; R31.9 Hematuria, unspecified; I48.91 Unspecified atrial fibrillation; G47.33 Obstructive sleep apnea (adult) (pediatric); Z96.642 Presence of left artificial hip joint; Z88.5 Allergy status to narcotic agent; Z79.899 Other long term (current) drug therapy; Z86.73 Personal history of transient ischemic attack (TIA), and cerebral infarction without residual deficits; Z90.5 Acquired absence of kidney; Z90.49 Acquired absence of other specified parts of digestive tract; Z87.891 Personal history of nicotine dependence; Z98.49 Cataract extraction status, unspecified eye
CPT/HCPCS: 36415; 51702; 70450; 70496; 70498; 70551; 71045; 80047; 80048; 80053; 81001; 82947; 83605; 83735; 84132; 84146; 85014; 85018; 85025; 85520; 85610; 87040; 92526; 92610; 93005; 93010; 94760; 94762; 95819; 96365; 96375; 97110; 97116; 97161; 97530; 99291-25; A9270; C1751; J0696; J1644; J1953; J2060; J3475; J3480; J7030; J7060; J7120; Q9967